=== PATIENT | female | born 1980 | race African-American/Black ===

== ENCOUNTER 2019-03-27 23:59 | Emergency (ER) | payer SELFPAY ==
[2019-03-28 00:08] VITALS: BP 112/79; PULSE 99; TEMP 101; BMI 32.9
[2019-03-28] MEDS ORDERED: AMOXICILLIN 500 MG CAPSULE (FP) PO ONE (00:33)
[2019-03-28] MEDS ORDERED: IBUPROFEN 600 MG TABLET (FP) PO ONE ×2 (00:33→00:45)
--- NOTE | 2019-03-28 00:36 | PDOC ---
History of Present Illness - General Chief Complaint: Pain Stated Complaint: RIGHT EAR PAIN,SORE THROAT Time Seen by Provider: 03/28/19 00:22 - History of Present Illness Initial Comments: 03/28/19 01:16 r ear pain Is this a multiple visit Asthma Patient?: No Timing/Duration: 24 hours Severity: moderate Modifying Factors: worse with: medication Associated Symptoms: reports: fever/chills, headaches. denies: nausea/vomiting , rash Past History - Past Medical History Allergies/Adverse Reactions: Allergies Allergy/AdvReac Type Severity Reaction Status Date / Time No Known Allergies Allergy Verified 03/28/19 00:03 Home Medications: Ambulatory Orders No Home Medications 0 dose .ROUTE UTDICT 11/05/12 Amoxicillin - [Amoxicillin 500mg Capsule -] 500 mg PO TID #30 capsule 03/28/19 Ibuprofen [Motrin -] 600 mg PO TID PRN #15 tablet 03/28/19 COPD: No Other medical history: DENIES - Immunization History Td Vaccination: Yes Immunization Up to Date: Yes - Psycho Social/Smoking Cessation Hx Smoking Status: No Smoking History: Never smoked Have you smoked in the past 12 months: No Number of Cigarettes Smoked Daily: 0 Cigars Per Day: 0 Information on smoking cessation initiated: No Hx Alcohol Use: No Drug/Substance Use Hx: No Review of Systems - Review of Systems All Other Systems: Reviewed and Negative *Physical Exam - Vital Signs Last Vital Signs Temp Pulse Resp BP Pulse Ox 101 F H 99 H 18 112/79 98 03/28/19 00:04 03/28/19 00:04 03/28/19 00:04 03/28/19 00:04 03/28/19 00:04 - Physical Exam General Appearance: Yes: Nourished, Appropriately Dressed HEENT: positive: TM Bulging, TM Dull. negative: Pharyngeal Erythema, Tonsillar Exudate Neck: negative: Tender Respiratory/Chest: positive: Lungs Clear Cardiovascular: positive: Regular Rhythm Lymphatic: negative: Adenopathy Integumentary: positive: Normal Color Medical Decision Making - Medical Decision Making 03/28/19 01:17 acute OM abx analgesia Discharge - Discharge Information Problems reviewed: Yes Clinical Impression/Diagnosis: Otitis media Qualifiers: Otitis media type: suppurative Chronicity: acute Laterality: right Recurrence: non-recurrent Spontaneous tympanic membrane rupture: without spontaneous rupture Qualified Code(s): H66.001 - Acute suppurative otitis media without spontaneous rupture of ear drum, right ear Condition: Stable Disposition: HOME - Admission No - Additional Discharge Information Prescriptions: Amoxicillin - [Amoxicillin 500mg Capsule -] 500 mg PO TID #30 capsule Ibuprofen [Motrin -] 600 mg PO TID PRN #15 tablet PRN Reason: pain or fever - Follow up/Referral - Patient Discharge Instructions Patient Printed Discharge Instructions: Middle Ear Infection - Post Discharge Activity
[2019-03-28] MEDS ORDERED: AMOXICILLIN 250 MG CAPSULE ONE (00:45)
== END 2019-03-28 00:49 | disposition home or self-care (01) ==
LOC: FER 23:59
DX: H66.001 Acute suppurative otitis media without spontaneous rupture of ear drum, right ear (principal)
CPT/HCPCS: 99281-25

== ENCOUNTER 2019-11-01 09:32 | Emergency (ER) | payer OTHER ==
[2019-11-01] MEDS ORDERED: IBUPROFEN 600 MG TABLET (FP) PO ONE ×2 (09:36→09:44)
[2019-11-01 09:42] VITALS: BP 111/69; PULSE 73; TEMP 98.7; BMI 31.9
--- NOTE | 2019-11-01 10:42 | PDOC ---
History of Present Illness - General Chief Complaint: Pain Stated Complaint: RIGHT ANKLE PAIN FOR 2 DAYS Time Seen by Provider: 11/01/19 09:35 History Source: Patient Exam Limitations: No Limitations - History of Present Illness Initial Comments: 11/01/19 10:41 39-year-old female no past medical history here today with right ankle injury. Patient states she has been running recently yesterday was running think she may have twisted her ankle this morning awoke with pain over the dorsum lateral aspect of her ankle. Did notice some mild swelling no ecchymosis has been ambulating with mild difficulty denies any knee or hip pain no other falls no history of prior ankle injury or surgeries Past History - Medical History Allergies/Adverse Reactions: Allergies Allergy/AdvReac Type Severity Reaction Status Date / Time No Known Allergies Allergy Verified 11/01/19 09:33 Home Medications: Ambulatory Orders NK [No Known Home Medication] 11/01/19 COPD: No Other medical history: denies - Reproductive History Is Patient Now?: No - Immunization History Td Vaccination: Yes Immunization Up to Date: Yes - Psycho-Social/Smoking History Smoking Status: No Smoking History: Never smoked Have you smoked in the past 12 months: No Number of Cigarettes Smoked Daily: 0 Cigars Per Day: 0 Information on smoking cessation initiated: No - Substance Abuse Hx (Audit-C & DAST Scrn) How often the patient has a drink containing alcohol: 2-4 times / month Number of drinks the patient has on a typical day: 1 or 2 How often the patient has six or more drinks on one occasion: Never Score: In Men: 4 or > Positive; In Women: 3 or > Positive: 2 Screen Result (Pos requires Nsg. Audit-10AR): Negative In the last yr the pt used illegal drug/Rx for NonMed reason: No Score: Yes response is considered Positive: 0 Screen Result (Positive result requires Nsg. DAST-10): Negative Review of Systems - Review of Systems Constitutional: No: Diaphoresis HEENTM: No: Blurred Vision Respiratory: No: Cough, Shortness of Breath Cardiac (ROS): No: Chest Pain ABD/GI: No: Abdominal Distended, Nausea, Vomiting : No: Burning, Dysuria, Discharge Musculoskeletal: Yes: Joint Pain Neurological: No: Headache All Other Systems: Reviewed and Negative *Physical Exam - Vital Signs Last Vital Signs Temp Pulse Resp BP Pulse Ox 98.7 F 73 16 111/69 99 11/01/19 09:33 11/01/19 09:33 11/01/19 09:33 11/01/19 09:33 11/01/19 09:33 - Physical Exam 11/01/19 10:42 Awake alert no acute distress head is atraumatic lungs are clear bilaterally heart is regular 30 murmurs rubs or gallops examination extremities demonstrates all to be atraumatic. Examination of the right ankle shows mild tenderness of the talofibular ligament dorsally. There is no appreciated swelling or ecchymosis. Palpation of the lateral and medial malleoli are nontender distally patient is neurovascular intact has 2+ DP PT pulses. Examination of the proximal fibula and knee show full range of motion on that side nontender skin overlying is warm and dry no laceration ED Treatment Course - RADIOLOGY Radiology Studies Ordered: Category Date Time Status ANKLE-RIGHT [RAD] Stat Radiology 11/01/19 09:35 Completed - Medications Given in the ED: ED Medications Discontinued Medications Generic Name Dose Route Start Last Admin Trade Name Kennyq PRN Reason Stop Dose Admin Ibuprofen 600 mg 11/01/19 09:36 11/01/19 09:45 Motrin - PO 11/01/19 09:37 600 mg ONCE ONE Administration Medical Decision Making - Medical Decision Making 11/01/19 10:43 39-year-old female likely ankle sprain. Plan x-ray to rule underlying fracture X-rays are negative for any fracture will discharge home given orthopedic follow-up and air splint for comfort recommend Motrin 400 mg every 8 hours as needed for pain Discharge - Discharge Information Problems reviewed: Yes Clinical Impression/Diagnosis: Ankle sprain Condition: Improved Disposition: HOME - Admission No - Follow up/Referral Referrals: Miles Linares MD [Staff Physician] - - Patient Discharge Instructions Patient Printed Discharge Instructions: Ankle Sprain Additional Instructions: Your x-rays today are negative for any bony fracture. You likely have an ankle sprain. This may take 1 to 2 weeks before he feels completely better in the meantime you can wear an ankle splint which is been given to you for comfort. Ice and elevate to help reduce swelling every few hours over the next 24 hours. For your pain you can take [id number] ibuprofen 400 mg every 6-8 hours which is the equivalent of 2 x 200 mg tablets For pain beyond 1 to 2 weeks ago follow-up with orthopedist Dr. Linares to see referral information and call to set up an outpatient appointment - Post Discharge Activity
== END 2019-11-01 11:11 | disposition home or self-care (01) ==
LOC: FER 09:32
DX: S93.401A Sprain of unspecified ligament of right ankle, initial encounter (principal)
CPT/HCPCS: 73610-TC-RT-FY; 99284-25